=== PATIENT | male | born 1955 | race Caucasian/White ===

== ENCOUNTER → 2020-02-11 | Outpatient (CLI) | payer BC ==
[~2020-02-11] MED LIST: ALLER-TEC D 5-1 EACH; ALLO300; AMLO5; ASPI81CH; ATEN25; ATOR20; BUPR100ER; CHOL10002; CIPR500; CYAN1000; Diphenhist25 MG; Glucosamine H1500 MG; OMEP20ER; SACC250C; Synthroid25 MCG; TURMERIC500 MG; ZESTRIL40 MG
[2020-02-16 12:40] LABS: Stool Occult Bld Immuno 1 Negative (NEGATIVE)
== END | disposition home or self-care (01) ==
LOC: LAB 10:00 → LAB SHORT 10:00
PROVIDERS: Family Medicine
DX: Z12.11 Encounter for screening for malignant neoplasm of colon (principal)
CPT/HCPCS: G0328

== ENCOUNTER → 2021-12-30 | Outpatient (CLI) | payer BC ==
[2021-12-30 13:31] LABS: Stool Occult Bld Immuno 1 Negative (NEGATIVE)
== END ==
LOC: LAB SHORT 11:31
PROVIDERS: Family Medicine
DX: K76.9 Liver disease, unspecified (principal)
CPT/HCPCS: G0328